=== PATIENT | female | born 1980 | race African-American/Black ===

== ENCOUNTER 2018-09-23 08:16 | Inpatient (IN) | payer MEDICAID ==
[~2018-09-23] VITALS: Ht 160 cm; Wt 74.8 kg
[2018-09-23] MEDS ORDERED: SODIUM CHLORIDE 0.9% 1,000 ML IV ONE (08:41)
[2018-09-23] MEDS ORDERED: ONDANSETRON HCL 4MG/2ML INJ IV STA (08:41)
[2018-09-23] MEDS ORDERED: PANTOPRAZOLE SODIUM 40 MG/VIAL IV STA (08:41)
[2018-09-23 09:21] LABS: CHLORIDE 99 mEq/L (98-107)
[2018-09-23 09:23] LABS: CLARITY URINE CLOUDY (CLEAR); COLOR URINE DARK YELLOW (YELLOW); KETONES URINE 4+ (NEGATIVE); LEUKOCYTE ESTERASE URINE 2+ (NEGATIVE); NITRITE URINE NEGATIVE (NEGATIVE); OCCULT BLOOD URINE NEGATIVE (NEGATIVE); PARTIAL THROMBOPLASTIN TIME 30.8 sec (23.4-31.0); PH URINE 5.5 (4.5-8.0); PROTEIN URINE 1+ (NEGATIVE); SPECIFIC GRAVITY URINE 1.029 (1.005-1.030)
[2018-09-23 09:25] LABS: ETHANOL BLOOD < 10 mg/dL
[2018-09-23 09:28] LABS: HCG SCREEN NEGATIVE
[2018-09-23 09:38] LABS: *AMPHETAMINES SCREEN URINE NEGATIVE (NEGATIVE); *BARBITURATES SCREEN URINE NEGATIVE (NEGATIVE); *BENZODIAZEPINES SCREEN URINE NEGATIVE (NEGATIVE)
[2018-09-23 09:39] LABS: *COCAINE SCREEN URINE NEGATIVE (NEGATIVE); METHADONE URINE SCREEN NEGATIVE (NEGATIVE); OPIATES URINE SCREEN NEGATIVE (NEGATIVE); PHENCYCLIDINE URINE SCREEN NEGATIVE (NEGATIVE)
[2018-09-23 09:42] LABS: CANNABINOID URINE SCREEN PRESUMTIVE POSITIVE (NEGATIVE)
[2018-09-23 09:49] LABS: BASOPHILS % 0.5 % (0.0-2.0); EOSINOPHILS % 0.8 % (0.0-5.0); HEMATOCRIT. 49.3 % (36.0-48.0); HEMOGLOBIN. 17.1 g/dL (12.0-16.0); LYMPHOCYTES % 16.2 % (20.0-50.0); MEAN CORPUSCULAR HEMOGLOBIN 35.4 pg (28.0-32.0); MEAN CORPUSCULAR VOLUME 102.6 fL (81.0-99.0); MEAN PLATELET VOLUME 8.4 fl (7.4-10.4); MONOCYTES % 5.7 % (2.0-8.0); NEUTROPHILS % 76.8 % (40.0-76.0); PLATELET 332 x1000/uL (130-400); RED BLOOD CELL COUNT 4.81 mill/uL (4.2-5.4); RED CELL DISTRIBUTION WIDTH 13.1 % (11.6-14.6)
[2018-09-23] MEDS ORDERED: CEFTRIAXONE 1 G PREMIX 50 ML IV ONE (10:15)
[2018-09-23] MEDS ORDERED: CLONIDINE 0.1MG TABLET PO PRN (11:15)
[2018-09-23] MEDS ORDERED: ACETAMINOPHEN 325MG TABLET PO PRN (11:15)
[2018-09-23] MEDS ORDERED: NA PHOS,M-B/NA PHOS,DI-BA ENEMA 118ML PR PRN (11:15)
[2018-09-23] MEDS ORDERED: GUAIFENESIN 200MG/10ML SUGAR FREE UDC PO PRN (11:15)
[2018-09-23] MEDS ORDERED: ONDANSETRON HCL 4MG/2ML INJ IV PRN (11:15)
[2018-09-23] MEDS ORDERED: DIPHENHYDRAMINE 50MG/ML VIAL IV PRN (11:15)
[2018-09-23] MEDS ORDERED: HYDROCODONE/ACETAMINOPHEN 5/325MG TABLET PO PRN (11:15)
[2018-09-23] MEDS ORDERED: IPRATROPIUM/ALBUTEROL 0.5-3(2.5)MG/3ML NEB INH PRN (11:15)
[2018-09-23] MEDS ORDERED: MAGNESIUM/ALUMINUM HYDROXIDE/SIMETHICONE 30ML UDC PO PRN (11:15)
[2018-09-23] MEDS ORDERED: DOCUSATE SODIUM 100MG CAPSULE PO PRN (11:15)
[2018-09-23] MEDS: LORAZEPAM 2MG/ML CPJ IV PRN (11:35)
[2018-09-23 11:40] VITALS: BP 128/80
[2018-09-23] MEDS ORDERED: ALPR1TAB2 MT (11:53)
[2018-09-23] MEDS ORDERED: ZOLP5TAB2 MT (11:53)
[2018-09-23 12:00] VITALS: BP 123/78
[2018-09-23 16:00] VITALS: BP 113/71
[2018-09-23] MEDS: MORPHINE SULFATE 2 MG/ML CPJ (NOT FOR IM USE) IV PRN ×2 (16:17→20:25)
[2018-09-23 17:40] LABS: CHLORIDE 103 mEq/L (98-107)
[2018-09-23] MEDS ORDERED: ZOLPIDEM TARTRATE 5MG TABLET PO PRN (18:45)
[2018-09-23 20:00] VITALS: BP 111/76
[2018-09-24] VITALS: BP 118/119
[2018-09-24 04:00] VITALS: BP 128/71
[2018-09-24 05:51] LABS: CHLORIDE 104 mEq/L (98-107)
[2018-09-24 05:59] LABS: HDL CHOLESTEROL 89 mg/dL (40-59); LDL CHOLESTEROL 52 mg/dL (5-100)
[2018-09-24 06:00] LABS: T4 FREE 1.11 ng/dL (0.76-1.46)
[2018-09-24 06:25] LABS: BASOPHILS % 0.7 % (0.0-2.0); EOSINOPHILS % 1.6 % (0.0-5.0); HEMOGLOBIN. 14.2 g/dL (12.0-16.0); MEAN CORPUSCULAR HEMOGLOBIN 35.6 pg (28.0-32.0); MEAN CORPUSCULAR VOLUME 102.9 fL (81.0-99.0); MEAN PLATELET VOLUME 8.7 fl (7.4-10.4); MONOCYTES % 8.9 % (2.0-8.0); NEUTROPHILS % 49.8 % (40.0-76.0); PLATELET 267 x1000/uL (130-400); RED BLOOD CELL COUNT 3.99 mill/uL (4.2-5.4)
[2018-09-24 08:00] VITALS: BP 118/68
[2018-09-24] MEDS ORDERED: OMEPRAZOLE 20MG CAPSULE EXTENDED RELEASE PO SCH (09:15)
[2018-09-24] MEDS: LORAZEPAM 2MG/ML CPJ IV PRN (09:36)
[2018-09-24 12:45] VITALS: BP 115/67
== END 2018-09-24 13:20 | disposition home or self-care (01) | DRG 241 ==
LOC: ER 08:16 → 8WST 10:05 → EDBEDREQ 10:07 → ENRESERV 10:29
PROVIDERS: ADMIT Internal Medicine; ATTEND Internal Medicine
DX: K29.71 Gastritis, unspecified, with bleeding (principal); E87.1 Hypo-osmolality and hyponatremia; D64.9 Anemia, unspecified; K25.4 Chronic or unspecified gastric ulcer with hemorrhage; K92.0 Hematemesis; E86.0 Dehydration; F17.210 Nicotine dependence, cigarettes, uncomplicated; I10 Essential (primary) hypertension; F10.10 Alcohol abuse, uncomplicated; Z79.899 Other long term (current) drug therapy
CPT/HCPCS: 36415; 71045; 80048; 80061; 80305; 80320; 83735; 83880; 84439; 84443; 84703; 86850; 86900; 93005; 96374; 96375; 99285; C9113; J0696; J2060; J2270; J2405; J7030; G0480